=== PATIENT | female | born 1955 | race African-American/Black ===

== ENCOUNTER 2016-08-25 13:46 | Emergency (ER) | payer OTHER ==
[~2016-08-25] VITALS: Ht 167.6 cm; Wt 97.0 kg
[~2016-08-25 13:46] MED LIST: LISI-363 PO; MULT1TAB46 PO
[2016-08-25 13:49] VITALS: BP 148/84; PULSE 79; RESP 18; TEMP 98.2; O2SAT 98
--- NOTE | 2016-08-25 13:58 | PD ---
Physical Exam Date Seen by Provider: August 25, 2016 Time Seen by Provider: 13:57 Narrative 60 year old female presents to the emergency department for evaluation of left sided sciatica that flared up 2 days ago. No injury. She also states she has chronic right ankle pain. Vital signs reviewed. Patient awaiting bed placement. Data Data Last Documented VS Vital Signs Date Time Temp Pulse Resp B/P Pulse Ox O2 Delivery O2 Flow Rate FiO2 08/25/16 13:49 98.2 79 18 148/84 98 Room Air [facility] Supervised Visit with HARLEEN: Radha Meraz August 25, 2016 13:58
[2016-08-25] MEDS ORDERED: LISI-515 PO (14:12)
[2016-08-25] MEDS ORDERED: MULT-135 PO (14:12)
[2016-08-25] MEDS ORDERED: ORPHENADRINE INJ 60 MG/2 ML AMP IM ONE (14:30)
[2016-08-25] MEDS ORDERED: KETOROLAC TROMETHAMINE 60 MG/2 ML (IM) VIAL IM ONE (14:30)
--- NOTE | 2016-08-25 14:32 | PD ---
HPI Chief Complaint: Back/ Neck Pain or Injury Time Seen by Provider: 14:31 Travel History International Travel<30 days: No Contact w/Intl Traveler<30days: No Traveled to known affect area: No History of Present Illness HPI 60-year-old female with history of left-sided sciatica presents to the emergency Department with complaint of exacerbation of left-sided sciatica. She is also complaining of right ankle pain but she also says is chronic and exacerbates at times. Denies new or recent injury. Says she has had ankle x- rays in the past with no findings consistent with her ankle pain. Patient requesting ankle brace. Reports being ambulatory. Denies IV drug use, cancer. Denies fever, vomiting. Denies urinary symptoms. Denies paresthesias, loss of sensation, decreased range of motion, decreased strength to bilateral lower extremities. Denies encopresis, incontinence, saddle anesthesias. Has not taken any medications or tried any treatments to alleviate her symptoms. No known allergies. Has no other medical complaints. No other modifying factors or associated signs and symptoms. PFSH Past Medical History Hx Anticoagulant Therapy: No Anemia: Yes (BORDERLINE) Arthritis: Yes Autoimmune Disease: No Blood Disorders: No Cancer: No Cardiovascular Problems: Yes (htn) Chemotherapy: No Cerebrovascular Accident: Yes (2 strokes) Diabetes: Yes (NEW ONSET) Diminished Hearing: No Endocrine: No Gastrointestinal Disorders: Yes GERD: Yes Glaucoma: No Genitourinary: Yes Headaches: Yes Hepatitis: No Hiatal Hernia: No Hypertension: Yes Immune Disorder: No Kidney Stones: Yes Musculoskeletal: No Neurologic: Yes Psychiatric: No Reproductive: No Respiratory: No Immunizations Current: No Migraines: Yes Thyroid Disease: No Menopausal: Yes : 3 Para: 3 Miscarriage: 0 : 0 Past Surgical History Abdominal Surgery: Yes (GASTRIC BYPASS - 1998, UMBILICAL HERNIA REPAIR) Section: Yes (x 3) Cholecystectomy: Yes Genitourinary Surgery: Yes (STENT) Gynecologic Surgery: Yes (BREAST REDUCTION) Hysterectomy: No Pacemaker: No Other Surgery: Yes (UMBILICAL HERNIA) Social History Alcohol Use: No Tobacco Use: No (QUIT 24 YEARS AGO ) Substance Use: No Allergies-Medications (Allergen,Severity, Reaction): Coded Allergies: No Known Allergies (Verified , 03/15/16) Reported Meds & Prescriptions Reported Meds & Active Scripts Active Naproxen 500 Mg Tab 500 Mg PO BID PRN 10 Days Robaxin (Methocarbamol) 500 Mg Tab 500 Mg PO QID PRN Reported Lisinopril 20 Mg Tab 20 Mg PO DAILY Multi Vitamin (Multiple Vitamin) 1 Tab Tab 1 Tab PO DAILY Review of Systems Except as stated in HPI: all other systems reviewed are Neg Physical Exam Narrative GENERAL: Well-nourished, well-developed female patient, in no acute distress; afebrile, nontoxic-appearing SKIN: Warm and dry. HEAD: Atraumatic. Normocephalic. EYES: Pupils equal and round. No scleral icterus. No injection or drainage. ENT: Mucosa pink and moist. Airway patent. NECK: Trachea midline. CARDIOVASCULAR: Regular rate. RESPIRATORY: No accessory muscle use. GASTROINTESTINAL: Obese. MUSCULOSKELETAL: Right ankle is without erythema, edema, ecchymosis; with tenderness on palpation; without obvious deformity; with full range of motion. Bilateral lower extremities supple and non-tense with 2+ pedal pulses and sensory intact; with full range of motion and 5/5 strength. Active dorsiflexion and extension of bilateral feet. Sitting up in bed at 90. No obvious deformities. No clubbing. No cyanosis. No edema. BACK: No midline point tenderness on palpation of the lumbar spine. Tenderness on palpation of left iliosacral area. No obvious deformities. NEUROLOGICAL: Awake and alert. Oriented 3. No obvious cranial nerve deficits. Motor grossly within normal limits. Normal speech. Moves all extremities. 5/5 strength to all extremities. Sensory intact. PSYCHIATRIC: Appropriate mood and affect; insight and judgment normal. Data Data Last Documented VS Vital Signs Date Time Temp Pulse Resp B/P Pulse Ox O2 Delivery O2 Flow Rate FiO2 08/25/16 13:49 98.2 79 18 148/84 98 Room Air Orders Ketorolac Inj (Toradol Inj) (08/25/16 14:30) Orphenadrine Inj (Norflex Inj) (08/25/16 14:30) Splint Or Brace Apply/Monitor (08/25/16 14:32) MDM Medical Decision Making Medical Screen Exam Complete: Yes Emergency Medical Condition: Yes Medical Record Reviewed: Yes Differential Diagnosis Acute exacerbation of chronic low back pain with sciatica, right ankle pain, arthritis Narrative Course 60-year-old female with acute exacerbation of chronic low back pain with left- sided sciatica and right ankle pain. Denies new or recent injury. Denies encopresis, incontinence, saddle anesthesias. Denies IV drug use, cancer. Patient states she's had x-rays of her right ankle in the past with no findings. She is just requesting a ankle brace for support; she does not want an x-ray of the ankle. No midline point tenderness on palpation of the lumbar spine. Toradol and Norflex administered in the ER. Wilfred bandage and ankle stirrup splint provider for support. Instructed patient to follow up with orthopedic for continued ankle pain. Ibuprofen and Robaxin prescribed for home. Patient verbalizes understanding and agreement with treatment plan. Patient is medically cleared and stable for discharge. Discussed reasons to return to the emergency department. Instructed patient to follow up with primary care provider. Patient agrees with treatment plan. The patients vital signs are stable and the patient is stable for outpatient follow-up and treatment. Patient discharged home, stable and in no acute distress. Diagnosis Primary Impression: Left-sided low back pain with sciatica Qualified Code: M54.42 - Left-sided low back pain with left-sided sciatica, unspecified chronicity Additional Impression: Right ankle pain Qualified Code: M25.571 - Right ankle pain, unspecified chronicity Referrals: Orthopedist Primary Care Physician Patient Instructions: Acute Low Back Pain (ED), General Instructions, Sciatica (ED) Departure Forms: Tests/Procedures, Work Release Enter return to work date: August 27, 2016 Additional Instructions: Tylenol or ibuprofen as directed and as needed for pain Robaxin as prescribed and as needed for muscle spasms Heating pad and/or ice to affected area to reduce pain Avoid aggravating activities; increase activity as tolerated Ankle brace and Wilfred bandage as needed for compression and support Follow-up with primary care provider Return to emergency department immediately with worsening of symptoms Med/Other Pt SpecificInfo: Prescription(s) given Scripts Naproxen 500 Mg [id number] Mg PO BID PRN (PAIN SCALE 1 TO 10) 10 Days Ref 0 Prov:Mary Grace Ramirez 08/25/16 Methocarbamol (Robaxin)500 Mg [id number] Mg PO QID PRN (MUSCLE SPASM) #30 TAB Ref 0 Prov:Mary Grace Ramirez 08/25/16 Disposition: 01 DISCHARGE HOME Condition: Stable Mary Grace Ramirez August 25, 2016 14:32
[2016-08-25] MEDS ORDERED: NAPR500T PO (14:40)
[2016-08-25] MEDS ORDERED: ROBA500T PO (14:40)
== END 2016-08-25 15:08 | disposition home or self-care (01) ==
LOC: NEPK 13:46
DX: M54.42 Lumbago with sciatica, left side (principal); M25.571 Pain in right ankle and joints of right foot
CPT/HCPCS: 96372; 99283; J1885; J2360; L1906

== ENCOUNTER 2016-12-21 20:51 | Emergency (ER) | payer OTHER ==
[~2016-12-21] VITALS: Ht 167.6 cm; Wt 100.5 kg
[~2016-12-21 20:51] MED LIST changes: -LISI-363 PO; +LISI-515 PO; +MULT-135 PO; -MULT1TAB46 PO; +NAPR500T PO; +ROBA500T PO
[2016-12-21 20:53] VITALS: BP 183/99; PULSE 82; RESP 18; TEMP 98.8; O2SAT 98
[2016-12-21] MEDS ORDERED: LISI-515 PO (21:29)
--- NOTE | 2016-12-21 21:29 | PD ---
HPI Chief Complaint: Medication Refill Request Time Seen by Provider: 21:24 Travel History International Travel<30 days: No Contact w/Intl Traveler<30days: No Traveled to known affect area: No History of Present Illness HPI Patient is a 61-year-old female who is in between physicians and presented to the emergency department for refill of her lisinopril. She has no complaints at this time. Denies any headache chest pain shortness breath abdominal pain nausea vomiting diarrhea. PFSH Past Medical History Hx Anticoagulant Therapy: No Anemia: Yes (BORDERLINE) Arthritis: Yes Autoimmune Disease: No Blood Disorders: No Cancer: No Cardiovascular Problems: Yes (htn) Chemotherapy: No Cerebrovascular Accident: Yes (2 strokes) Diabetes: Yes (NEW ONSET) Patient Takes Glucophage: No Diminished Hearing: No Endocrine: No Gastrointestinal Disorders: Yes GERD: Yes Glaucoma: No Genitourinary: Yes Headaches: Yes Hepatitis: No Hiatal Hernia: No Hypertension: Yes Immune Disorder: No Kidney Stones: Yes Musculoskeletal: No Neurologic: Yes Psychiatric: No Reproductive: No Respiratory: No Immunizations Current: No Migraines: Yes Thyroid Disease: No ?: Not Menopausal: Yes : 3 Para: 3 Miscarriage: 0 : 0 Past Surgical History Abdominal Surgery: Yes (GASTRIC BYPASS - 1998, UMBILICAL HERNIA REPAIR) Section: Yes (x 3) Cholecystectomy: Yes Genitourinary Surgery: Yes (STENT) Gynecologic Surgery: Yes (BREAST REDUCTION) Hysterectomy: No Pacemaker: No Other Surgery: Yes (UMBILICAL HERNIA) Social History Alcohol Use: No Tobacco Use: No (QUIT 24 YEARS AGO ) Substance Use: No Allergies-Medications (Allergen,Severity, Reaction): Coded Allergies: No Known Allergies (Verified , 12/21/16) Reported Meds & Prescriptions Reported Meds & Active Scripts Active Lisinopril 20 Mg Tab 20 Mg PO DAILY Reported Lisinopril 20 Mg Tab 20 Mg PO DAILY Review of Systems Except as stated in HPI: all other systems reviewed are Neg Physical Exam Narrative GENERAL: Well-developed well-nourished no obvious distress SKIN: Focused skin assessment warm/dry. HEAD: Atraumatic. Normocephalic. EYES: Pupils equal and round. No scleral icterus. No injection or drainage. ENT: No nasal bleeding or discharge. Mucous membranes pink and moist. NECK: Trachea midline. No JVD. CARDIOVASCULAR: Regular rate and rhythm. No murmur appreciated. RESPIRATORY: No accessory muscle use. Clear to auscultation. Breath sounds equal bilaterally. GASTROINTESTINAL: Abdomen soft, non-tender, nondistended. Hepatic and splenic margins not palpable. MUSCULOSKELETAL: No obvious deformities. No clubbing. No cyanosis. No edema. NEUROLOGICAL: Awake and alert. No obvious cranial nerve deficits. Motor grossly within normal limits. Normal speech. PSYCHIATRIC: Appropriate mood and affect; insight and judgment normal. Data Data Last Documented VS Vital Signs Date Time Temp Pulse Resp B/P (MAP) Pulse Ox O2 Delivery O2 Flow Rate FiO2 12/21/16 20:53 98.8 82 18 183/99 (127) 98 MDM Medical Decision Making Medical Screen Exam Complete: Yes Emergency Medical Condition: Yes Differential Diagnosis Essential hypertension, elevated blood pressure, hypertensive emergency excluded clinically. Narrative Course Patient roomed in emergency department, she is very pleasant, she states she is a borderline diabetic. She was requesting refills of lisinopril which I'm happy to oblige. The patient states that she does have insurance and think she can get into his see her primary care provider in the next month. A month prescription for lisinopril is been written. Discussed return to ED criteria. Diagnosis Primary Impression: Essential hypertension Med/Other Pt SpecificInfo: Prescription(s) given Scripts Lisinopril (Lisinopril) 20 Mg Tab 20 MG PO DAILY, #30 TAB 0 Refills Prov: Armando Barone MD 12/21/16 Disposition: 01 DISCHARGE HOME Condition: Stable Armando Barone MD Dec 21, 2016 21:29
== END 2016-12-21 22:01 | disposition home or self-care (01) ==
LOC: NEPD 20:51
DX: I10 Essential (primary) hypertension (principal); R73.03 Prediabetes; D64.9 Anemia, unspecified; M13.80 Other specified arthritis, unspecified site; K21.9 Gastro-esophageal reflux disease without esophagitis; Z76.0 Encounter for issue of repeat prescription; Z86.73 Personal history of transient ischemic attack (TIA), and cerebral infarction without residual deficits; Z87.442 Personal history of urinary calculi
CPT/HCPCS: 99283

== ENCOUNTER 2017-10-04 09:58 | Emergency (ER) | payer OTHER ==
[~2017-10-04] VITALS: Ht 162.6 cm; Wt 100.0 kg
[~2017-10-04 09:58] MED LIST changes: -MULT-135 PO; -NAPR500T PO; -ROBA500T PO
[2017-10-04 10:05] VITALS: BP 164/102; PULSE 78; RESP 16; TEMP 98.6; O2SAT 98
[2017-10-04] MEDS ORDERED: SODIUM CHLOR 0.9% 1000 ML INJ 1,000 ML IV ONE (10:18)
[2017-10-04] MEDS ORDERED: SODIUM CHLORIDE 0.9% FLUSH 10 ML FLUSH IVF PRN (10:30)
[2017-10-04] MEDS ORDERED: METOCLOPRAMIDE HCL 10 MG/2 ML VIAL IVP ONE (10:30)
[2017-10-04] MEDS ORDERED: diphenhydrAMINE HCL 50 MG/ML VIAL IVP ONE (10:30)
[2017-10-04] MEDS ORDERED: MORPHINE SULFATE 4 MG/ML INJ IV PUSH ONE (10:30)
--- NOTE | 2017-10-04 10:32 | PD ---
HPI Chief Complaint: Headache Time Seen by Provider: 10:09 Travel History International Travel<30 days: No Contact w/Intl Traveler<30days: No Traveled to known affect area: No History of Present Illness HPI The patient is a 61-year-old female who presents to the emergency department for headache. The patient notes a four-day history of headache that is located in the right aspect of the head, throbbing, associated with mild photophobia and nausea, however, no vomiting. The patient does have a history of similar headaches in the past which she attributes to tension. The patient states she was seen at [facility] yesterday, they wanted to perform a CT of the brain, however, she declined. The patient was given medication at that time which did help the headache initially, however, headache has returned. She does have a previous history of intracranial hemorrhage in 2011 which she attributes to hypertension. The patient does take her antihypertensive medications. The patient denies any focal deficits of the upper or lower extremities. She does complain of photophobia but denies any blurry vision. She denies any neck pain, chest pain, or shortness of breath. Symptoms are moderate without any current alleviating factors. PFSH Past Medical History Hx Anticoagulant Therapy: No Anemia: Yes (BORDERLINE) Arthritis: Yes Autoimmune Disease: No Blood Disorders: No Cancer: No Cardiovascular Problems: Yes (htn) Chemotherapy: No Cerebrovascular Accident: Yes (2 strokes) Diabetes: Yes (NEW ONSET) Patient Takes Glucophage: No Diminished Hearing: No Endocrine: No Gastrointestinal Disorders: Yes GERD: Yes Glaucoma: No Genitourinary: Yes Headaches: Yes Hepatitis: No Hiatal Hernia: No Hypertension: Yes Immune Disorder: No Kidney Stones: Yes Musculoskeletal: No Neurologic: Yes Psychiatric: No Reproductive: No Respiratory: No Immunizations Current: No Migraines: Yes Thyroid Disease: No Tetanus Vaccination: > 5 Years Menopausal: Yes : 3 Para: 3 Miscarriage: 0 : 0 Past Surgical History Abdominal Surgery: Yes (GASTRIC BYPASS - 1998, UMBILICAL HERNIA REPAIR) Section: Yes (x 3) Cholecystectomy: Yes Genitourinary Surgery: Yes (STENT) Gynecologic Surgery: Yes (BREAST REDUCTION) Hysterectomy: No Pacemaker: No Other Surgery: Yes (UMBILICAL HERNIA) Social History Alcohol Use: No Tobacco Use: No (QUIT 24 YEARS AGO ) Substance Use: No Allergies-Medications (Allergen,Severity, Reaction): Coded Allergies: No Known Allergies (Verified Adverse Reaction, Unknown, 10/04/17) Reported Meds & Prescriptions Reported Meds & Active Scripts Active Reported Lisinopril 20 Mg Tab 20 Mg PO DAILY Review of Systems Except as stated in HPI: all other systems reviewed are Neg General / Constitutional: No: Fever Eyes: Positive: Photophobia, No: Blurred Vision HENT: Positive: Headaches, No: Neck Pain Cardiovascular: No: Chest Pain or Discomfort Respiratory: No: Shortness of Breath Gastrointestinal: Positive: Nausea, No: Vomiting Musculoskeletal: No: Weakness Neurologic: Positive: Headache, No: Dizziness, Focal Abnormalities, Change in Mentation, Paresthesia, Sensory Disturbance Physical Exam Narrative GENERAL: Awake, alert, nontoxic-appearing 61-year-old female who appears her stated age and is in no acute respiratory distress. SKIN: Focused skin assessment warm/dry. HEAD: Atraumatic. Normocephalic. EYES: Pupils equal and round. Pupils are 4 mm bilateral and reactive. EOMs are intact. No injection noted. ENT: No nasal bleeding or discharge. Mucous membranes pink and moist. NECK: Trachea midline. No JVD. No meningeal signs noted. CARDIOVASCULAR: Regular rate and rhythm. No murmur appreciated. RESPIRATORY: No accessory muscle use. Clear to auscultation. Breath sounds equal bilaterally. GASTROINTESTINAL: Abdomen soft, non-tender, nondistended. MUSCULOSKELETAL: No obvious deformities. No clubbing. No cyanosis. No edema. NEUROLOGICAL: Awake and alert. No obvious cranial nerve deficits. Motor grossly within normal limits. Normal speech. PSYCHIATRIC: Appropriate mood and affect; insight and judgment normal. Data Data Last Documented VS Vital Signs Date Time Temp Pulse Resp B/P (MAP) Pulse Ox O2 Delivery O2 Flow Rate FiO2 10/04/17 10:39 18 Room Air 10/04/17 10:05 98.6 78 164/102 (122) 98 Orders Orders Ecg Monitoring (10/04/17 10:18) Iv Access Insert/Monitor (10/04/17 10:18) Oximetry (10/04/17 10:18) Sodium Chloride 0.9% Flush (Ns Flush) (10/04/17 10:30) Diphenhydramine Inj (Benadryl Inj) (10/04/17 10:30) Metoclopramide Inj (Reglan Inj) (10/04/17 10:30) Sodium Chlor 0.9% 1000 Ml Inj (Ns 1000 M (10/04/17 10:18) Morphine Inj (Morphine Inj) (10/04/17 10:30) Ct Brain W/O Iv Contrast(Rout) (10/04/17 ) Ketorolac Inj (Toradol Inj) (10/04/17 11:45) Ed Discharge Order (10/04/17 11:56) MDM Medical Decision Making Medical Screen Exam Complete: Yes Emergency Medical Condition: Yes Medical Record Reviewed: Yes Interpretation(s) Last Impressions Head CT 10/04/17 0000 Signed Impressions: CONCLUSION: 1. No acute intracranial abnormality is identified. 2. Low density in the left parietal region has an appearance suggesting enceph alomalacia likely related to prior ischemia. Other chronic changes include gene ralized atrophy and mild to moderate periventricular white matter low-density c haracteristic of chronic microvascular ischemia. Differential Diagnosis Differential diagnosis includes tension headache, migraine, glaucoma, temporal arteritis, intracranial hemorrhage, sinus cavernous thrombosis, subdural hemorrhage, subarachnoid hemorrhage. Narrative Course IV was established and the patient was placed on cardiac telemetry monitoring and continuous pulse oximetry monitoring. CT of the brain was ordered. The patient was administered Reglan, Benadryl, IV fluids, and morphine. CT of the brain was negative for acute intracranial abnormalities, does reveal an old area of encephalomalacia, therefore, the patient was administered Toradol 15 mg intravenously. The patient was reevaluated at 11:55 AM, her headache had significantly improved. The patient will be provided a copy of her CT results at discharge. She is advised to follow-up with her primary physician and/or neurology if symptoms persist. She will be prescribed Fioricet as needed for headache but is advised not to take regularly as she could develop rebound headaches. The patient agrees and understands. She is stable for discharge. Diagnosis Primary Impression: Cephalgia Qualified Codes: R51 - Headache Patient Instructions: General Instructions, Narcotic given in the ED Additional Instructions: Please provide the patient a copy of her CT results at discharge. Fioricet as needed. Follow-up with your primary physician and/or neurology if symptoms worsen or progress. Med/Other Pt SpecificInfo: Prescription(s) given Scripts Gctpaiqaot-Zcjyawesoatiw-Lcfjbhtf (Fioricet) 50-300-40 Mg Cap 1 CAP PO Q4H Y for HEADACHE, #10 CAP 0 Refills Prov: Elton Gamboa MD 10/04/17 Disposition: 01 DISCHARGE HOME Condition: Stable Elton Gamboa MD Oct 04, 2017 10:32
--- NOTE | 2017-10-04 11:38 | RADRPT ---
EXAM DATE: 10/04/2017 11:24 AM EDT AGE/SEX: 61 years / Female INDICATIONS: Migraine for 4 days CLINICAL DATA: This is the patient's initial encounter. Patient reports that signs and symptoms have been present for 1 day and indicates a pain score of 0/10. MEDICAL/SURGICAL HISTORY: Cerebrovascular disease. Hypertension. None. RADIATION DOSE: 56.35 CTDI (mGy) COMPARISON: [facility] [place], CT BRAIN W/O CONTRAST, 07/22/2012. . TECHNIQUE: CT of the head without contrast. Using automated exposure control and adjustment of the mA and/or kV according to patient size, radiation dose was kept as low as reasonably achievable to ob tain optimal diagnostic quality images. DICOM format image data is available electronically for revi ew and comparison. FINDINGS: Cerebrum: There is mild generalized atrophy and ventricles are normal given the degree of atrophy. M ild periventricular white matter change is present. There is an area of low density in the left parie wei high and mid convexity with an appearance suggesting encephalomalacia. This finding is new since the prior examination from 2012. No midline shift, mass lesion, hemorrhage or acute infarction. No e xtraaxial fluid collections are seen. Posterior Fossa: The cerebellum and brainstem demonstrate no acute abnormality. The 4th ventricle is midline. The cerebellopontine angle is within normal limits. Extracranial: The visualized sinuses are clear. Skull: The calvaria is intact. No skull fracture. CONCLUSION: 1. No acute intracranial abnormality is identified. 2. Low density in the left parietal region has an appearance suggesting encephalomalacia likely rela mercedes to prior ischemia. Other chronic changes include generalized atrophy and mild to moderate periven tricular white matter low-density characteristic of chronic microvascular ischemia. Electronically signed by: Abraham Way MD 10/04/2017 11:36 AM EDT
[2017-10-04] MEDS ORDERED: KETOROLAC TROMETHAMINE 30 MG/ML (IVP) VIAL IV PUSH ONE (11:45)
[2017-10-04] MEDS ORDERED: BUTA1CAP PO (11:58)
[2017-10-04 12:21] VITALS: BP 181/66; PULSE 79; RESP 19; O2SAT 98
[2017-10-04 12:22] VITALS: BP 181/66; PULSE 78; RESP 18; O2SAT 98
== END 2017-10-04 12:30 | disposition home or self-care (01) ==
LOC: NEPD 09:58
DX: R51 Headache (principal); R11.0 Nausea; D64.9 Anemia, unspecified; M19.90 Unspecified osteoarthritis, unspecified site; I10 Essential (primary) hypertension; E11.9 Type 2 diabetes mellitus without complications; K21.9 Gastro-esophageal reflux disease without esophagitis; Z87.442 Personal history of urinary calculi; Z79.899 Other long term (current) drug therapy; Z87.891 Personal history of nicotine dependence; Z86.73 Personal history of transient ischemic attack (TIA), and cerebral infarction without residual deficits
CPT/HCPCS: 70450; 96361; 96374; 96375; 99284; J1200; J1885; J2270; J2765; J7030